=== PATIENT | female | born 1965 | race Caucasian/White ===

== ENCOUNTER 2024-01-24 05:45 | Inpatient (IN) | payer SELFPAY ==
[2024-01-24] VITALS (7 sets, daily range): BP systolic 148–158; PULSE 57–72; RESP 14–20; TEMP 97.9–98.6; O2SAT 94–100
[~2024-01-24] VITALS: Ht 162.6 cm; Wt 93.9 kg
[2024-01-24] MEDS: MAG HYDROX/AL HYDROX/SIMETH 30 ML, DICYCLOMINE HCL 20 MG, LIDOCAINE VISCOUS 2% 15ML (PO... PO ONE (06:18)
[2024-01-24] MEDS: KETOROLAC TROMETHAMINE 60 MG/2 ML VIAL IM ONE (06:18)
[2024-01-24 06:31] LABS: BASOPHILS % (AUTO) 0.2 % (0.0-2.0); HEMATOCRIT 48.9 % (36-48); HEMOGLOBIN 16.4 g/dL (12.0-16.0); LYMPHOCYTES # (AUTO) 0.9 K/uL (1.0-5.5); LYMPHOCYTES % (AUTO) 4.6 % (20.5-51.5); MEAN CORPUSCULAR HEMOGLOBIN 28 pg (27-31); MEAN CORPUSCULAR HGB CONC 34 % (32-36); MEAN CORPUSCULAR VOLUME 83 fL (79.0-98.0); MONOCYTES # (AUTO) 0.9 K/uL (0.0-1.0); MONOCYTES % (AUTO) 4.4 % (1.7-9.3); NEUTROPHILS # (AUTO) 17.9 K/uL (1.8-7.7); NEUTROPHILS % (AUTO) 90.8 % (40.0-70.0); PLATELET COUNT (AUTO) 456 K/uL (130-430); RED BLOOD CELL COUNT(AUTO) 5.87 MIL/uL (4.2-6.2); RED CELL DISTRIBUTION WIDTH 14.3 % (9.0-15.0); WHITE BLOOD COUNT (AUTO) 19.7 K/uL (4.8-10.8)
[2024-01-24 06:51] LABS: ALBUMIN 3.7 g/dL (3.4-4.8); BILIRUBIN,DIRECT 1.3 mg/dL (0.0-0.3); CALCIUM 9.4 mg/dL (8.4-11.0); CREATININE 0.96 mg/dL (0.55-1.30); POTASSIUM 3.1 mmol/L (3.5-5.1); TOTAL BILIRUBIN 2.2 mg/dL (0.0-1.0); TOTAL PROTEIN, SERUM 7.9 g/dL (6.4-8.3)
[2024-01-24] MEDS: MORPHINE 4 MG INJ. 4 MG/ML VIAL IVP ONE (06:55)
[2024-01-24 07:15] LABS: BILIRUBIN,URINE 1+ (NEGATIVE); BLOOD, URINE NEGATIVE (NEGATIVE); CLARITY/URINE CLEAR (CLEAR); COLOR,URINE YELLOW (YELLOW); GLUCOSE,URINE NEGATIVE (NEGATIVE); KETONES,URINE TRACE (NEGATIVE); LEUKOCYTE ESTERASE ,URINE NEGATIVE (NEGATIVE); NITRITE, URINE NEGATIVE (NEGATIVE); PH,URINE 8.5 (5.0-8.0); PROTEIN URINE 1+ (NEGATIVE)
[2024-01-24] MEDS ORDERED: ACETAMINOPHEN 325 MG TABLET PO PRN (07:15)
[2024-01-24] MEDS ORDERED: MORPHINE 2 MG/ML INJ. SYRINGE IVP PRN (07:15)
[2024-01-24] MEDS ORDERED: MORPHINE 4 MG INJ. 4 MG/ML VIAL IVP PRN (07:15)
[2024-01-24] MEDS: ONDANSETRON HCL 4 MG/2 ML VIAL IVP ONE (07:21)
[2024-01-24 07:29] LABS: BARBITURATE, URINE NEGATIVE (NEG <=200); BENZODIAZEPINE, URINE NEGATIVE (NEG <=150); CANNABINOID, URINE NEGATIVE (NEG <=50); COCAINE, URINE NEGATIVE (NEG <=150); METHAMPHETAMINES SCREEN,URINE NEGATIVE (NEG <=500); OPIATE, URINE NEGATIVE (NEG <=100); PHENCYCLIDINE SCREEN,URINE NEGATIVE (NEG <=25); URINE AMPHETAMINE NEGATIVE (NEG <=500); URINE METHADONE NEGATIVE (NEG <=200); URINE OXYCODONE SCREEN NEGATIVE (NEG <=100)
[2024-01-24 07:30] LABS: UR TRICYCLIC ANTIDEPRESSANTS NEGATIVE (NEG <=300)
[2024-01-24 07:45] LABS: BACTERIA,URINE RARE /HPF (None Seen); RBC,URINE 0-3 /HPF (0-3); WBC,URINE 0-3 /HPF (0-3)
[2024-01-24 07:46] LABS: MUCUS,URINE 1+ /LPF (None Seen)
[2024-01-24] MEDS: LR 1,000 ML IV SCH (07:46)
[2024-01-24] MEDS ORDERED: KETAMINE HCL IN 0.9 % NACL 50 MG/5 ML SYRINGE ONE (07:53)
[2024-01-24] MEDS: KETAMINE HCL IN 0.9 % NACL 20 MG in NS 100 ML IV ONE (08:05)
[2024-01-24] MEDS: MORPHINE SULFATE 10 MG/ML VIAL IVP PRN (08:21)
[2024-01-24] MEDS: cefTRIAXone 1 GM IVPB PREMIX 50 ML IV ONE (08:29)
[2024-01-24 09:46] LABS: HEMOGLOBIN A1C 5.6 % (<5.7)
[2024-01-24] MEDS: HYDROmorphone 2 MG/ML VIAL IVP ONE (10:21)
[2024-01-24] MEDS: PIPERACILLIN/TAZO 3.375 GM in D5W 50 ML IV SCH (13:06)
[2024-01-24] MEDS: ONDANSETRON HCL 4 MG/2 ML VIAL IVP PRN (14:16)
[2024-01-24] MEDS: PANTOPRAZOLE SODIUM 40 MG/VIAL (PROTONIX) IVP ONE (18:42)
[2024-01-24 19:22] LABS: CALCIUM 8.5 mg/dL (8.4-11.0); CREATININE 0.75 mg/dL (0.55-1.30); POTASSIUM 3.5 mmol/L (3.5-5.1)
[2024-01-24 19:55] LABS: PROTHROMBIN TIME 10.8 SECS (9.5-12.5)
[2024-01-24] MEDS: HYDROmorphone 2 MG/ML VIAL IVP PRN (20:55)
[2024-01-24] MEDS: HEPARIN SODIUM,PORCINE 5,000 UNITS/ML VIAL SUBCUT SCH (21:07)
[2024-01-25] VITALS (7 sets, daily range): BP systolic 133–143; PULSE 60–92; RESP 13–18; TEMP 96.8–99.7; O2SAT 90–96
[2024-01-25 04:56] LABS: BASOPHILS % (AUTO) 0.1 % (0.0-2.0); HEMATOCRIT 45.1 % (36-48); HEMOGLOBIN 15.1 g/dL (12.0-16.0); LYMPHOCYTES # (AUTO) 1.7 K/uL (1.0-5.5); LYMPHOCYTES % (AUTO) 6.7 % (20.5-51.5); MEAN CORPUSCULAR HEMOGLOBIN 28 pg (27-31); MEAN CORPUSCULAR HGB CONC 33 % (32-36); MEAN CORPUSCULAR VOLUME 84 fL (79.0-98.0); MONOCYTES # (AUTO) 1.1 K/uL (0.0-1.0); MONOCYTES % (AUTO) 4.5 % (1.7-9.3); NEUTROPHILS # (AUTO) 22.8 K/uL (1.8-7.7); NEUTROPHILS % (AUTO) 88.7 % (40.0-70.0); PLATELET COUNT (AUTO) 397 K/uL (130-430); RED BLOOD CELL COUNT(AUTO) 5.35 MIL/uL (4.2-6.2); RED CELL DISTRIBUTION WIDTH 14.5 % (9.0-15.0); WHITE BLOOD COUNT (AUTO) 25.7 K/uL (4.8-10.8)
[2024-01-25 05:14] LABS: INR 1.1 (0.8-1.2); PROTHROMBIN TIME 11.4 SECS (9.5-12.5)
[2024-01-25 05:41] LABS: ALBUMIN 3.1 g/dL (3.4-4.8); CALCIUM 9.4 mg/dL (8.4-11.0); CREATININE 0.75 mg/dL (0.55-1.30); TOTAL PROTEIN, SERUM 7.1 g/dL (6.4-8.3)
[2024-01-25] MEDS: KCL 20 mEq in 100 mL (PREMIX) 100 ML IV ONE (07:15)
[2024-01-25] MEDS ORDERED: KCL 40 mEq in 100 mL (PREMIX) 100 ML IV ONE (07:15)
[2024-01-25] MEDS: HYDROmorphone 1 MG/ML INJ. CARTRIDGE IV PRN (08:29)
[2024-01-25] MEDS: PANTOPRAZOLE SODIUM 40 MG/VIAL (PROTONIX) IVP SCH (08:30)
[2024-01-25] MEDS: LORazepam 2 MG/ML VIAL IVP PRN (09:59)
[2024-01-25] MEDS: MEROPENEM 1 GM IVPB PREMIX 50 ML IV SCH (13:14)
[2024-01-25] MEDS: ACETAMINOPHEN 325 MG TABLET PO PRN (16:36)
[2024-01-25] MEDS ORDERED: HYDROcodone/ACETAMIN 5-325 MG TAB (NORCO/ VICODIN) PO PRN (17:30)
[2024-01-25] MEDS: HYDROcodone/ACETAMIN 10-325 MG TAB PO PRN (17:46)
[2024-01-25] MEDS ORDERED: LORazepam 2 MG/ML VIAL IVP PRN ×2 (20:00→20:15)
[2024-01-26 00:10] VITALS: BP_SYST 156; PULSE 74; RESP 18; TEMP 97.5; O2SAT 94
[2024-01-26] MEDS: HYDROmorphone 1 MG/ML INJ. CARTRIDGE IVP PRN (02:45)
[2024-01-26 04:42] LABS: HEMATOCRIT 37.5 % (36-48); HEMOGLOBIN 12.8 g/dL (12.0-16.0); LYMPHOCYTES # (AUTO) 1.6 K/uL (1.0-5.5); LYMPHOCYTES % (AUTO) 7.3 % (20.5-51.5); MEAN CORPUSCULAR HEMOGLOBIN 29 pg (27-31); MEAN CORPUSCULAR HGB CONC 34 % (32-36); MEAN CORPUSCULAR VOLUME 84 fL (79.0-98.0); MONOCYTES % (AUTO) 4.6 % (1.7-9.3); NEUTROPHILS % (AUTO) 88.1 % (40.0-70.0); PLATELET COUNT (AUTO) 298 K/uL (130-430); RED BLOOD CELL COUNT(AUTO) 4.49 MIL/uL (4.2-6.2); RED CELL DISTRIBUTION WIDTH 14.2 % (9.0-15.0); WHITE BLOOD COUNT (AUTO) 21.6 K/uL (4.8-10.8)
[2024-01-26 05:05] LABS: SERUM HCG (QUALITATIVE) NEGATIVE (NEGATIVE)
[2024-01-26 05:07] LABS: ALBUMIN 2.5 g/dL (3.4-4.8); CALCIUM 8.6 mg/dL (8.4-11.0); CREATININE 0.59 mg/dL (0.55-1.30); POTASSIUM 3.1 mmol/L (3.5-5.1); TOTAL BILIRUBIN 0.8 mg/dL (0.0-1.0); TOTAL PROTEIN, SERUM 6.3 g/dL (6.4-8.3)
[2024-01-26 07:37] LABS: INR 1.1 (0.8-1.2); PROTHROMBIN TIME 11.1 SECS (9.5-12.5)
[2024-01-26 08:00] VITALS: BP_SYST 159; PULSE 89; RESP 18; TEMP 98; O2SAT 95
[2024-01-26] MEDS: KCL 20 mEq in 100 mL (PREMIX) 100 ML IV ONE (09:32)
[2024-01-26] MEDS: SIMETHICONE 40 MG/0.6 ML ML ONE (10:49)
[2024-01-26] MEDS ORDERED: DEXAMETHASONE SOD PHOSPHATE 4 MG/ML VIAL ONE (11:02)
[2024-01-26] MEDS: INDOMETHACIN 50 MG SUPP.RECT RC ONE (11:18)
[2024-01-26] MEDS ORDERED: LR 1,000 ML IV ONE (11:30)
[2024-01-26] MEDS ORDERED: ONDANSETRON HCL 4 MG/2 ML VIAL IVP PRN (11:30)
[2024-01-26] MEDS ORDERED: NALOXONE HCL 0.4 MG/ML AMP (NARCAN) IVP PRN (11:30)
[2024-01-26] MEDS ORDERED: fentaNYL CITRATE/PF 100 MCG/2 ML AMP IVP PRN ×2 (11:30)
[2024-01-26] MEDS ORDERED: HYDROmorphone 1 MG/ML INJ. CARTRIDGE IVP PRN (11:30)
[2024-01-26 13:10] VITALS: BP_SYST 140; PULSE 85; RESP 18; TEMP 98; O2SAT 96
[2024-01-26 17:49] VITALS: BP_SYST 156; PULSE 65; RESP 16; TEMP 97.7; O2SAT 97
[2024-01-26 20:00] VITALS: BP_SYST 147; PULSE 69; RESP 18; TEMP 98.7; O2SAT 94; O2SAT 95
[2024-01-27 00:20] VITALS: BP_SYST 153; PULSE 69; RESP 16; TEMP 98.1; O2SAT 93
[2024-01-27 05:32] LABS: PROTHROMBIN TIME 10.2 SECS (9.5-12.5)
[2024-01-27 05:33] LABS: BASOPHILS % (AUTO) 0.1 % (0.0-2.0); HEMATOCRIT 38.1 % (36-48); HEMOGLOBIN 13.1 g/dL (12.0-16.0); LYMPHOCYTES # (AUTO) 1.1 K/uL (1.0-5.5); MEAN CORPUSCULAR HEMOGLOBIN 29 pg (27-31); MEAN CORPUSCULAR HGB CONC 34 % (32-36); MEAN CORPUSCULAR VOLUME 83 fL (79.0-98.0); MONOCYTES # (AUTO) 0.7 K/uL (0.0-1.0); MONOCYTES % (AUTO) 4.5 % (1.7-9.3); NEUTROPHILS % (AUTO) 88.4 % (40.0-70.0); PLATELET COUNT (AUTO) 300 K/uL (130-430); RED BLOOD CELL COUNT(AUTO) 4.57 MIL/uL (4.2-6.2); RED CELL DISTRIBUTION WIDTH 14.2 % (9.0-15.0); WHITE BLOOD COUNT (AUTO) 15.8 K/uL (4.8-10.8)
[2024-01-27 05:51] LABS: ALBUMIN 2.5 g/dL (3.4-4.8); BILIRUBIN,DIRECT 2.6 mg/dL (0.0-0.3); CALCIUM 8.4 mg/dL (8.4-11.0); CREATININE 0.52 mg/dL (0.55-1.30); POTASSIUM 3.4 mmol/L (3.5-5.1); TOTAL BILIRUBIN 3.2 mg/dL (0.0-1.0); TOTAL PROTEIN, SERUM 5.8 g/dL (6.4-8.3)
[2024-01-27 08:00] VITALS: BP_SYST 165; PULSE 62; RESP 22; TEMP 98.1; O2SAT 93
[2024-01-27] MEDS: KCL 20 mEq in 100 mL (PREMIX) 100 ML IV ONE (09:09)
== END 2024-01-27 09:55 | disposition left against medical advice (07) | DRG 440 ==
LOC: SED 05:45 → SMU 07:10 → STU 23:21 → SMU 01-25 03:38 → STU 01-25 06:00
PROVIDERS: ADMIT Internal Medicine; ATTEND Internal Medicine
PROC: 0FC98ZZ Extirpation of Matter from Common Bile Duct, Via Natural or Artificial Opening Endoscopic (ICD-10-PCS; principal; 2024-01-26 10:30)
DX: K85.10 Biliary acute pancreatitis without necrosis or infection (principal); K80.70 Calculus of gallbladder and bile duct without cholecystitis without obstruction
CPT/HCPCS: 36415; 71045; 74181; 76000; 76705; 80048; 80053; 80061; 80076; 80307; 81000; 81001; 81015; 83037; 83605; 83615; 83690; 84703; 85025; 85610; 85651; 86886; 86900; 86901; 87040; 87081; 96372; 96374; 96375; 99291; C1769; C9113; G0378; J0696; J1100; J1170; J1644; J1885; J2001; J2060; J2185; J2270; J2405; J2543; J2704; J2710; J3480; J3490; J7030; J7060; Q9967